=== PATIENT | female | born 1985 | race Caucasian/White ===

== ENCOUNTER 2016-06-13 12:58 | Day surgery (SDC) | payer OTHER ==
[2016-06-13] MEDS ORDERED: LACTATED RINGERS 1,000 ML ONE ×3 (13:35→16:32)
[2016-06-13] MEDS ORDERED: IV START KIT ONE (13:35)
[2016-06-13] MEDS ORDERED: MIDAZOLAM HCL 1 MG/ML 2ML VIAL ONE (14:34)
[2016-06-13] MEDS ORDERED: FENTANYL 100 MCG/2 ML VIAL ONE (14:34)
[2016-06-13] MEDS ORDERED: ONDANSETRON 4 MG/2ML 2 ML VIAL ONE (14:35)
[2016-06-13] MEDS ORDERED: PROPOFOL 20 ML IV ONE (14:35)
[2016-06-13] MEDS ORDERED: MEPERIDINE 25 MG/ML SYRINGE ONE ×2 (14:52→15:15)
[2016-06-13] MEDS ORDERED: OXYTOCIN 10 UNITS/ML VIAL ONE (14:53)
[2016-06-13] MEDS ORDERED: MISOPROSTOL 200 MCG TABLET ONE (14:53)
[2016-06-13] MEDS ORDERED: METHYLERGONOVINE MALEATE 0.2 MG/ML 1ML AMP ONE (14:54)
[2016-06-13] MEDS ORDERED: CARBOPROST TROMETH 250 MCG/ML AMP IM ONE (14:54)
[2016-06-13] MEDS ORDERED: METOCLOPRAMIDE HCL 5 MG/ML 2ML VIAL ONE (15:10)
[2016-06-13] MEDS ORDERED: DOXYCYCLINE HYCLATE 100 MG in SODIUM CHLORIDE 0.9% 100 ML IV ONE (15:15)
[2016-06-13] MEDS ORDERED: DOXYCYCLINE HYCLATE 100 MG in NS 0.9% (MINI-BAG PLUS) 100 ML IV ONE (15:15)
[2016-06-13] MEDS ORDERED: MEPERIDINE 25 MG/ML SYRINGE IV PRN (15:25)
[2016-06-13] MEDS ORDERED: NALOXONE HCL 0.4 MG/ML VIAL IV PRN (15:25)
[2016-06-13] MEDS ORDERED: LABETALOL HCL 5 MG/ML 20ML VIAL IV PRN (15:25)
[2016-06-13] MEDS ORDERED: PROMETHAZINE HCL 25 MG/ML VIAL IM PRN (15:25)
[2016-06-13] MEDS ORDERED: ATROPINE SULFATE 0.4 MG/1 ML VIAL IV PRN (15:25)
[2016-06-13] MEDS ORDERED: MORPHINE SULFATE 4 MG/ML SYRINGE IV PRN (15:25)
[2016-06-13] MEDS ORDERED: ONDANSETRON 4 MG/2ML 2 ML VIAL IV PRN (15:25)
[2016-06-13] MEDS ORDERED: LACTATED RINGERS 1,000 ML IV SCH (15:30)
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
--- NOTE | 2016-06-13 16:28 | PCMBPN ---
Brief Post Op Note: Date of Procedure: 06/13/16 Start Time: [] Preoperative Diagnosis: 1. [missed ] Postoperative Diagnosis: 1. [Same] Procedure: [suction D&E] Surgeon: Yen Olivera DO Assist:[] Anesthesia: [general] Findings: [6 week sized uterus] Condition: [stable] Complications: [none] IV Fluids: [1000] mLs of LR Urine Output: [30] mLs Estimated Blood Loss: [250] mLs Tourniquet Time: [N/A] Specimens: [products of conception.] Implants: none] Drains: [N/A]
--- NOTE | 2016-06-14 07:42 | OP ---
TANO OLSON : 1985 DATE OF OPERATION: June 13, 2016 PREOPERATIVE DIAGNOSIS: Missed . POST OPERATIVE DIAGNOSIS: Missed . PROCEDURE PERFORMED: Suction dilatation and evacuation. ANESTHESIA: General. SURGEON: Mignon Olivera D.O. FINDINGS: Postoperatively she had a normal sized uterus. CONDITION: Stable. COMPLICATIONS: None. IV FLUIDS: 1 L. URINE OUTPUT: 30 mL. ESTIMATED BLOOD LOSS: 250 mL. SPECIMENS. Products of conception. IMPLANTS: None. PROCEDURE: Patient was taken back to the operating room where general anesthesia was easily obtained. She was prepped and draped in a dorsal lithotomy position in a normal sterile fashion. The bladder was drained of approximately 30 mL of urine. A weighted speculum was placed in the posterior aspect of the vagina. A right angle retractor was placed in the anterior aspect of the vagina. The cervix was grasped with a single tooth tenaculum on the anterior lip. The cervix was sequentially dilated using Quintanilla dilators to a size 12. An 8 curved suction was gently introduced into the uterine cavity and the suction was turned on. Several passes were made in the uterine cavity and products of conception were evacuated. Once the uterus was evacuated, the procedure was determined to be complete. All instruments were removed from the patient's vagina. Her bleeding was minimal, and she was easily roused from anesthesia. She was transferred to post anesthesia care unit in stable condition.
--- NOTE | 2016-06-17 14:11 | SURGPATH ---
[facility] [address] [place] [id number] Patient Name: TANO OLSON MR#: [id number] : 1985 Gender: F Specimen #: [id number] Collected: 06/13/2016 Received: 06/16/2016 Reported: 06/17/2016 Submitting Phys: SARAH ANSARI Copy To Phys: [facility] Clinical History / Pre-Operative Diagnosis: MISSED AB AT EIGHT WEEKS Specimen Source / Surgical Procedure Performed: UTERINE CONTENTS Interpretation: UTERINE CONTENTS: - INFLAMED DECIDUA AND GESTATIONAL ENDOMETRIUM. - NO IMMATURE CHORIONIC VILLI OR SOMATIC TISSUE IDENTIFIED. - NO EVIDENCE OF MALIGNANCY. Electronically Signed Out Harvinder Falcon M.D., Ph.D. Gross Description: The specimen is received in a formalin filled container labeled with the patient's name and "uterine contents". An aggregate of villela tissue admixed with hemorrhagic material is 5.0 x 5.0 x 2.0 cm. Included is a small amount of spongy, membranous, placenta-like tissue. Two rental sales representative sections are submitted in one cassette. Louis Lama Microscopic Description: Examination of sections from the uterine contents shows fragments of inflamed decidua and gestational endometrium. No immature chorionic villi or somatic tissue are seen. There is no evidence of malignancy. 1: [id number] O02.1
== END 2016-06-13 17:10 | disposition home or self-care (01) ==
LOC: SDC 12:58
PROVIDERS: ATTEND Obstetrics & Gynecology
PROC: 10D17ZZ Extraction of Products of Conception, Retained, Via Natural or Artificial Opening (ICD-10-PCS; principal; 2016-06-13)
DX: O02.1 Missed abortion (principal); O99.341 Other mental disorders complicating pregnancy, first trimester; F41.9 Anxiety disorder, unspecified; Z3A.08 8 weeks gestation of pregnancy